=== PATIENT | male | born 1965 | race Caucasian/White ===

== ENCOUNTER 2016-09-11 18:27 | Emergency (ER) | payer OTHER ==
--- NOTE | 2016-09-11 18:54 | EDM.PDOC ---
ED HPI GENERAL MEDICAL PROBLEM - General Chief Complaint: ENT Problem Stated Complaint: TOOTH PAIN Time Seen by Provider: 09/11/16 18:36 Source of Information: Reports: Patient History Limitations: Reports: No Limitations - History of Present Illness INITIAL COMMENTS - FREE TEXT/NARRATIVE: The patient presents with right upper jaw dental pain. This has been going on for a few days. His dentist is in [place] and he could not get him in today. He can see him on Thursday. He has chills but no fever. 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, NSAIDS Right Upper Tooth/Teeth Pain Score (Numeric/FACES): 8 - Related Data Allergies Allergy/AdvReac Type Severity Reaction Status Date / Time No Known Allergies Allergy Verified 09/11/16 18:38 Home Meds: Home Meds Hydrocodone/Acetaminophen [Hydrocodon-Acetaminophen 5-325] 1 - 2 each PO Q6HR PRN #20 tablet 09/11/16 [Rx] Penicillin V Potassium 500 mg PO Q6HR #40 tab 09/11/16 [Rx] Terbinafine [LamISIL] 250 mg PO DAILY 09/11/16 [History] Past Medical History - Past Health History Medical/Surgical History: Denies Medical/Surgical History Social & Family History - Tobacco Use Smoking Status *Q: Never Smoker Second Hand Smoke Exposure: No - Caffeine Use Caffeine Use: Reports: Coffee - Recreational Drug Use Recreational Drug Use: No ED ROS ENT - Review of Systems Review Of Systems: See Below Constitutional: Reports: Chills. Denies: Fever HEENT: Reports: Dental Pain Respiratory: Reports: No Symptoms Cardiovascular: Reports: No Symptoms Endocrine: Reports: No Symptoms GI/Abdominal: Reports: No Symptoms : Reports: No Symptoms Musculoskeletal: Reports: No Symptoms Skin: Reports: No Symptoms Neurological: Reports: No Symptoms ED EXAM, ENT - Physical Exam Exam: See Below Exam Limited By: No Limitations General Appearance: Alert, No Apparent Distress Ears: Normal External Exam Nose: Normal Inspection Mouth/Throat: Other (Pain upon palpation and edema with erythema to the right upper 3rd molar) Course - Vital Signs Last Recorded V/S: Last Vital Signs Temp 99.2 F 09/11/16 18:33 Pulse 62 09/11/16 18:33 Resp 19 09/11/16 18:33 BP 151/97 H 09/11/16 18:33 Pulse Ox 94 L 09/11/16 18:33 - Re-Assessments/Exams Free Text/Narrative Re-Assessment/Exam: 09/11/16 18:51 The patient has a dental abscess. I will get him on some pen VK and some hydrocodone for pain. Departure - Departure Time of Disposition: 18:55 Disposition: Home, Self-Care 01 Condition: Good Clinical Impression: Dental abscess, Pain, dental - Discharge Information Prescriptions: Hydrocodone/Acetaminophen [Hydrocodon-Acetaminophen 5-325] 1 - 2 each PO Q6HR PRN #20 tablet PRN Reason: Pain Penicillin V Potassium 500 mg PO Q6HR #40 tab Forms: ED Department Discharge Additional Instructions: Take the medicine as prescribed. Follow up with your dentist. Please return if you are worse.
== END 2016-09-11 19:17 | disposition home or self-care (01) ==
LOC: JD.ED 18:27
CPT/HCPCS: 99283

== ENCOUNTER 2017-01-11 19:18 | Emergency (ER) | payer BC, OTHER ==
[2017-01-11 19:33] VITALS: BP 131/84
[2017-01-11] MEDS ORDERED: Ibuprofen 800 MG Tab PO ONE (19:47)
[2017-01-11] MEDS ORDERED: Penicillin V Potassium 500 MG Tab PO ONE (19:48)
--- NOTE | 2017-01-11 19:52 | EDM.PDOC ---
ED HPI GENERAL MEDICAL PROBLEM - General Chief Complaint: ENT Problem Stated Complaint: tooth pain Time Seen by Provider: 01/11/17 19:40 Source of Information: Reports: Patient History Limitations: Reports: No Limitations - History of Present Illness INITIAL COMMENTS - FREE TEXT/NARRATIVE: Patient is a 51-year-old male presents ED complaining of pain to the #31 tooth with mild swelling to the gumline. Pain is persisted throughout the day. Worse with chewing on the affected side. Patient does have a large filling present. In the past she's had some intermittent discomfort that resolves on its own. At this point denies any additional complaints including fever/chills, nausea/ vomiting, or neck pain. Right Lower Oral/Mouth Pain Score (Numeric/FACES): 8 - Related Data Allergies Allergy/AdvReac Type Severity Reaction Status Date / Time No Known Allergies Allergy Verified 01/11/17 19:50 Home Meds: Home Meds Hydrocodone/Acetaminophen [Hydrocodon-Acetaminophen 5-325] 1 - 2 each PO Q6HR PRN #20 tablet 09/11/16 [Rx] Penicillin V Potassium 500 mg PO Q6HR #40 tab 09/11/16 [Rx] Terbinafine [LamISIL] 250 mg PO DAILY 09/11/16 [History] Past Medical History - Past Health History Medical/Surgical History: Denies Medical/Surgical History Social & Family History - Family History Family Medical History: Noncontributory - Tobacco Use Smoking Status *Q: Never Smoker Second Hand Smoke Exposure: No - Caffeine Use Caffeine Use: Reports: Coffee - Recreational Drug Use Recreational Drug Use: No ED ROS ENT - Review of Systems Review Of Systems: See Below Constitutional: Denies: Fever, Chills, Decreased Appetite HEENT: Reports: Dental Pain. Denies: Ear Pain ED EXAM, ENT - Physical Exam Exam: See Below Exam Limited By: No Limitations General Appearance: Alert, WD/WN, No Apparent Distress Ears: Hearing Grossly Normal Nose: Normal Inspection Mouth/Throat: Normal Inspection, Normal Oropharynx, Dental Pain, Dental Tenderness (#31 tooth. Large feeling present. Tenderness noted with gentle pressure downward. Gumline mildly swollen to the lateral aspect. Pain with palpation. No fluctuance noted no drainage noted.) Head: Atraumatic, Normocephalic Neck: Normal Inspection, Supple, Non-Tender, Full Range of Motion. No: Lymphadenopathy (L), Lymphadenopathy (R) Respiratory/Chest: No Respiratory Distress, No Accessory Muscle Use Cardiovascular: Normal Peripheral Pulses, Regular Rate, Rhythm Neurological: Alert, Oriented, CN II-XII Intact, Normal Cognition, No Motor/ Sensory Deficits Psychiatric: Normal Affect, Normal Mood Course - Vital Signs Last Recorded V/S: Last Vital Signs Temp 97.5 F 01/11/17 19:30 Pulse 63 01/11/17 19:30 Resp 16 01/11/17 19:30 BP 131/84 01/11/17 19:30 Pulse Ox 95 01/11/17 19:30 - Orders/Labs/Meds Meds: Medications Discontinued Medications Generic Name Dose Route Start Last Admin Trade Name Freq PRN Reason Stop Dose Admin Ibuprofen 800 mg 01/11/17 19:47 01/11/17 19:55 Motrin PO 01/11/17 19:48 800 mg ONETIME ONE Administration Penicillin V Potassium 500 mg 01/11/17 19:48 01/11/17 20:04 Veetids PO 01/11/17 19:49 500 mg ONETIME ONE Administration Departure - Departure Time of Disposition: 19:49 Disposition: Home, Self-Care 01 Condition: Good Clinical Impression: Pain due to dental caries, Swollen gums - Discharge Information Instructions: Dental Caries Referrals: Kannan Salas Jr, MD [Primary Care Provider] - Forms: ED Department Discharge Additional Instructions: Take the full course of pen vk as prescribed. For pain take Tylenol 650 mg every 6 hours and ibuprofen 600 mg every 6 hours in alternating fashion. Call and make an appointment with a dentist to have definitive treatment. Refrain from chewing on the affected side. Return to the ED for any new or worsening symptoms.
== END 2017-01-11 20:10 | disposition home or self-care (01) ==
LOC: JD.ED 19:18
DX: K02.9 Dental caries, unspecified (principal)
CPT/HCPCS: 99283; A9270